=== PATIENT | male | born 1960 | race Caucasian/White ===

== ENCOUNTER 2018-04-12 12:32 | Emergency (ER) | payer BC ==
[2018-04-12 12:52] LABS: Bilirubin Negative (Negative); Blood, Urine Large (Negative); Clarity Cloudy (Clear); Glucose, Urine (Dipstick) Negative (Negative); Leukocyte Negative (Negative); Nitrite Negative (Negative); Protein, Urine (Dipstick) 100 mg/dL (Neg-Trace); Urobilinogen 0.2 mg/dL (0.2-1.0); pH, Urine 5.5 (5.0-9.0)
[2018-04-12 12:57] LABS: Bacteria/HPF Rare-Few HPF (None Seen); RBC/HPF GREATER THAN 50-TNTC HPF (0-3); Specific Gravity, Urine 1.025 (1.002-1.036); Squamous Epithelial 0-3 HPF (0-3); WBC/HPF 0-3 HPF (0-3)
[2018-04-12] MEDS ORDERED: Fentanyl 100 MCG/2 ML VIAL ONE (13:03)
[2018-04-12] MEDS ORDERED: Ondansetron HCl/PF 4 MG/2 ML Vial ONE (13:03)
[2018-04-12 13:28] LABS: #Basophils 0.1 thou/uL (0.0-0.2); #Eosinphils 0.1 thou/uL (0.0-0.7); #Lymphocytes 1.8 thou/uL (1.20-3.40); #Monocytes 0.5 thou/uL (0.11-0.59); #Neutrophils 6.4 thou/uL (1.40-6.50); %Basophils 1.3 % (0.0-1.0); %Eosinophils 1.1 % (0.0-10.0); %Lymphocytes 20.1 % (21.0-51.0); %Monocytes 5.9 % (0.0-10.0); %Neutrophils 71.6 % (42.0-75.0); Hemoglobin 14.2 g/dL (14.0-18.0); Mean Corpuscular HGB CONC 32.9 g/dL (32.0-36.0); Mean Corpuscular Hemoglobin 28.2 pg (27.0-31.0); Mean Corpuscular Volume 85.8 fL (78.0-98.0); Mean Platelet Volume 5.7 fL (7.4-10.4); Platelet Count 297 thou/uL (130-400); RBC Distribution Width 12.3 % (11.5-14.5); Red Blood Cell (RBC) Count 5.04 mill/uL (4.70-6.10); White Blood Cell (WBC) Count 8.9 thou/uL (4.8-10.8)
--- NOTE | 2018-04-12 13:37 | CT ---
CT OF ABDOMEN AND PELVIS: DATE: 04/12/18. COMPARISON: 04/21/16. HISTORY: Pain. TECHNIQUE: Serial axial CT imaging at 5 mm intervals from lung bases through pubic symphysis without contrast. Coronal reformatted imaging obtained. FINDINGS: The lack of contrast media limits assessment of the viscera, vascular structures, and for lymphadenop athy. Imaged lung bases are unremarkable with no free intraperitoneal air or fluid noted. There is diffuse hypodensity involving the hepatic parenchyma suggesting extensive hepatic steatosis. Extensive coronary arterial calcification noted. The gallbladder, pancreas, spleen, adrenal glands, and kidneys demonstrate no acute findings. No brooke dence for nephrolithiasis or obstructive uropathy is noted on either side. However, there is a calci fication on axial image 70 and coronal image 76 measuring in the 1-2 mm range. It is along the cours e of and may be within the left ureter. There is no evidence for hydroureter or hydronephrosis, bryant perry. This calcification was not present on the 2016 examination. Small fat-containing inguinal hernias are noted bilaterally. There is diverticulosis of the sigmoid colon with no evidence for diverticulitis. No evidence for cosme wel inflammatory change or obstruction. The appendix appears normal. Scattered atherosclerotic calcification of the abdominal aorta noted, incompletely assessed on this e xam. No worrisome lytic or blastic bone lesions. A small hypodense lesion is noted in the mid pole/ lower pole of the left kidney, too small to characterize, likely on the basis of a small cyst, stable . IMPRESSION: 1. No evidence for obstructive uropathy or intrarenal calculus seen o either side. There is a new 1 -2 mm calcification along the course of the left ureter as detailed above. This could be immediately adjacent to or within the ureter. A location immediately adjacent to the ureter would be favored gi key the lack of evidence of obstructive uropathy, but if there is pain or hematuria, particularly on the left, a stone within the left ureter is a possibility. 2. Hepatic steatosis. 3. Sigmoid diverticulosis. POS: RAYSA
[2018-04-12 13:44] LABS: Anion Gap 16 mmol/L (10-20); BUN (Urea Nitrogen) 19 mg/dL (8.4-25.7); Calc. Creatinine Clearance 0 mL/min (70-130); Calcium 10.2 mg/dL (7.8-10.44); Carbon Dioxide 21 mmol/L (22-29); Chloride 108 mmol/L (98-107); Estimated GFR-MDRD 52; Glucose 107 mg/dL (70-105); Sodium 140 mmol/L (136-145)
[2018-04-12 13:50] LABS: Potassium 5.3 mmol/L (3.5-5.1)
[2018-04-12] MEDS ORDERED: Sodium Chloride 0.9% 1,000 ML BAG ONE (14:10)
== END 2018-04-12 14:32 | disposition home or self-care (01) ==
LOC: MADERS 12:32
DX: N20.1 Calculus of ureter (principal); K21.9 Gastro-esophageal reflux disease without esophagitis; E11.9 Type 2 diabetes mellitus without complications; I10 Essential (primary) hypertension; E78.5 Hyperlipidemia, unspecified; Z79.899 Other long term (current) drug therapy; Z79.82 Long term (current) use of aspirin; Z79.84 Long term (current) use of oral hypoglycemic drugs
CPT/HCPCS: 36415; 74176; 80048; 81003; 81015; 85025; 96361; 96374; 96375; J2405; J3010; J7050